=== PATIENT | male | born 1980 | race Caucasian/White ===

== ENCOUNTER 2025-02-26 10:06 | Emergency (ER) | payer BC, SELFPAY ==
--- NOTE | 2025-02-26 10:06 | ECG_ITS ---
APPROVED REPORT Exam: Resting ECG HR:70 bpm ECG Measurements Heart Rate 70 AXES MO 146 P 66 QRSd 111 QRS 67 QT 367 T 68 QTc 388 Conclusion Normal Sinus Rhythm Normal [place] Normal Intervals NO STEMI Electronically signed by : Louie Morris, 02/26/2025 17:28:42
[2025-02-26 10:09] VITALS: BP 126/88; PULSE 81; RESP 20; TEMP 36.9; O2SAT 100; BMI 27.2
--- NOTE | 2025-02-26 10:11 | ED_ITS ---
<Statement entered by Louie Morris DO - 02/27/25 07:14> I was consulted by the [facility], and we discussed the complexity of problems being addressed. I approved the treatment and management plan for this patient's care in the emergency department, thus performing a substantive portion of the medical decision making. I did personally evaluate this patient in the emergency department and obtained history as well. I do agree with history provided by the note above. Patient does note working on a farm and also notes left-sided chest pain and neck pain with numbness and tingling in the left arm. EKG appeared to be nonischemic and his troponin and delta troponin were both undetectably low. His heart score is low and his pain has resolved so I do not feel that he necessitates emergent evaluation by cardiology at this time. It is also very likely that he could have sustained a musculoskeletal injury given his line of work. We did discuss return precautions in the event he has any worsening symptoms and he acknowledged understanding. He remained stable in the emergency department, and symptoms had improved by the time of discharge. He was discharged home in stable condition. Louie Morris DO Discharge Plan Disposition Patient Disposition: Home, Self-Care Prescriptions Prescriptions: New lidocaine [Lidoderm] 5 % adhesive patch,medicated 1 patch topical DAILY 7 Days Qty: 7 0RF Rx Instructions: leave on most painful area for up to 12 hrs lidocaine [Lidoderm] 5 % adhesive patch,medicated 1 patch topical DAILY PRN (Reason: pain) 14 Days Qty: 15 0RF Rx Instructions: leave on most painful area for up to 12 hrs Referrals Follow up/Referrals: [facility] [Primary Care Provider, Medical] - See instructions Activity Restrictions/Add. Instructions Additional Instructions/Restrictions: Today you were evaluated in the emergency department for chest pain. Your cardiac enzymes were negative. Your chest x-ray was unremarkable. Please take the medication as prescribed. Please follow-up with your PCP next week. Please return to the ED for any worsening of your condition. Clinical Impressions Clinical Impression: Chest pain, Neck pain Instructions Patient Instructions: DI for Chest Pain Print Language Print Language: Malagasy Discharge ED Provider: Louie Morris HPI <Maddi Lentz APRN - Last Filed: 02/26/25 17:52> General Chief Complaint: Chest Pain Stated Complaint: Chest Pain Time Seen by Provider: 02/26/25 10:10 History of Present Illness HPI narrative: patient is a 44-year-old male with no significant PMHx who presents to the ED for complaints of left-sided neck pain, left arm pain, nausea, chest tightness that started approximately 0745 this morning. 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 He states although he does not have any cardiac history, his father had WPW, open heart surgery. Patient states he has been evaluated since he was young for cardiac issues, has had multiple negative stress test just due to family history. Related Data Previous Rx's ?Medication ?Instructions ?Recorded lidocaine 5 % topical patch 1 patch topical DAILY 7 da ys #7 ea 02/26/25 (Lidoderm) lidocaine 5 % topical patch 1 patch topical DAILY PRN pain 14 02/26/25 (Lidoderm) days #15 ea Allergies Allergy/AdvReac Type Severity Reaction Status Date / Time No Known Allergies Allergy Verified 02/26/25 10:14 [facility] <Maddi Lentz APRN - Last Filed: 02/26/25 17:52> [facility] Disclaimer: The information contained in this section may have been updated after the patient was seen, as this information can be updated by other users. Social History (Updated 02/26/25 @ 17:52 by Maddi Lentz APRN) Smoking Status: Current every day smoker alcohol intake: never current occupational status: employed Travel in the last 8 weeks?: None Have you lived/traveled outside [place] in past 30 days?: No Contact w/someone who lives/traveled outside US past 30 days?: No Exposure to someone with infectious disease in past 14 days?: No Do you have a fever (greater than 100.4 F or 38 C)?: No Have you tested positive for COVID-19?: No Exposed to someone with COVID-19 in past 14 days?: No Do you have a sore throat?: No Do you have a cough?: No Do you have any weakness?: No Do you have any diarrhea?: No Are you experiencing any unusual bleeding?: No Do you have any muscle aches/pain?: No Do you have any abdominal pain?: No Are you experiencing loss of taste or smell?: No <Maddi Lentz APRN - Last Filed: 02/26/25 17:52> ROS Obtained: Yes Systems reviewed as appropriate & no additional complaints except as documented Physical Exam <Maddi Lentz APRN - Last Filed: 02/26/25 17:52> General General appearance: alert and in no apparent distress Head Head exam: atraumatic Eye Eye exam: Present PERRL and EOMI Neck Neck exam: Present full ROM and tenderness (left sided neck tenderness ) Chest Chest inspection: Present other (Mild left-sided chest wall tenderness) Respiratory Respiratory exam: Present normal lung sounds bilaterally Cardiovascular Cardiovascular exam: Present regular rate Abdominal Exam Abdominal exam: Present soft; Absent tenderness Extremities Exam Extremities exam: Present full ROM Back Exam Back exam: Present full ROM Neurological Exam Neurological exam: Present alert and oriented X3 Skin Skin exam: Present warm and dry HEART Score <Maddi Lentz APRN - Last Filed: 02/26/25 17:52> HEART Score HEART Score assessment performed?: Yes History (anamnesis): Slightly suspicious ECG: Normal Age: <45 years Risk factors: No known risk factors Troponin: </= normal limit HEART Score: 0 <Louie Morris DO - Last Filed: 02/27/25 12:23> HEART Score HEART Score: 0 Critical Care <Maddi Lentz APRN - Last Filed: 02/26/25 17:52> Critical Care Time Critical Care Time: No Medical Decision Making <Maddi Lentz APRN - Last Filed: 02/26/25 17:52> Danny Inquiry Pt receiving controlled substance: No Vital Signs Vital Signs: 02/26/25 10:09 02/26/25 10:13 02/26/25 13:39 Temperature 98.4 F 98.7 F Temperature Source Oral Oral Pulse Rate 81 56 L Pulse Rate [Right Brachial] 81 Respiratory Rate 20 18 Blood Pressure 107/68 L Blood Pressure [Right Arm] 126/88 Blood Pressure Mean [Right Arm] 100 Blood Pressure Source Automatic Cuff Blood Pressure Source [Right Arm] Automatic Cuff Blood Pressure Position Sitting Blood Pressure Position [Right Arm] Sitting 02 Sat by Pulse Oximetry 100 Oxygen Delivery Method Room Air Room Air Lab Data Labs: Lab Results 02/26/25 10:09: WBC 7.4, RBC 5.39, Hgb 16.4, Hct 47.8, MCV 88.7, MCH 30.4, MCHC 34.3, RDW 12.3, Plt Count 217, MPV 11.1 H, Neut % (Auto) 66.1, Lymph % (Auto) 24.8, [place] % (Auto) 6.5, Eos % (Auto) 1.3, Baso % (Auto) 0.8, Neut # (Auto) 4.9, Lymph # (Auto) 1.8, [place] # (Auto) 0.5, Eos # (Auto) 0.1, Baso # (Auto) 0.1, Sodium 139, Potassium 4.8, Chloride 105, Carbon Dioxide 27, Anion Gap 11.8, BUN 24 H, Creatinine 1.10, Estimated Creat Clear 107, Estimated GFR 73, Est GFR ( Amer) 89, Glucose 123 H, Calcium 8.8, Magnesium 2.1, Total Bilirubin 0.8, AST 29, ALT 35, Alkaline Phosphatase 56, Troponin I < 0.01, Total Protein 7.2, Albumin 4.5, Globulin 2.7, Albumin/Globulin Ratio 1.7 02/26/25 12:58: Troponin I < 0.01 02/26/25 10:09 02/26/25 10:09 Response Orders (Tests/Meds): ED MEDICATIONS Discontinued Medications Generic Name Dose Route Start Last Admin Trade Name Freq PRN Reason Stop Dose Admin Acetaminophen 1,000 mg 02/26/25 10:21 02/26/25 10:40 Acetaminophen 500mg Tab PO 02/26/25 10:22 1,000 mg ONCE ONE Administration Lidocaine 1 each 02/26/25 10:21 02/26/25 10:35 Lidocaine 5% Transdermal Patch TD 02/26/25 10:22 1 each ONCE ONE Administration Ondansetron HCl 4 mg 02/26/25 10:25 02/26/25 10:35 Ondansetron 4mg/2ml Vial IV 02/26/25 10:26 4 mg ONCE ONE Administration ORDERS Category Date Time Status CXR --portable [XR chest portable] Stat Exams 02/26/25 10:21 Completed CBC w/Auto Diff [Complete Blood Count Auto Diff] Stat Lab 02/26/25 10:09 Completed CMP [Comprehensive Metabolic Panel] Stat Lab 02/26/25 10:09 Completed Magnesium Stat Lab 02/26/25 10:09 Completed Trop I [Troponin I] Stat Lab 02/26/25 10:09 Completed Troponin I Q3H Lab 02/26/25 12:58 Completed MDM Narrative Medical Decision Narrative: In summary, patient is a 44-year-old male with no significant PMHx who presents to the ED for complaints of left-sided neck pain, left arm pain, nausea, chest tightness that started approximately 0745 this morning. 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 He states although he does not have any cardiac history, his father had WPW, open heart surgery. Patient states he has been evaluated since he was young for cardiac issues, has had multiple negative stress test just due to family history. Patient states that he has had neck pain from his physical labor job before however it feels different this time. He denies tobacco use, vaping, drugs or alcohol. Denies fever, chills, bodyaches, shortness of breath, abdominal pain. Upon initial evaluation patient is alert, oriented and cooperative. He is hemodynamically stable. His physical exam is remarkable for mild chest wall tenderness upon palpation, mild left- sided neck and shoulder tenderness upon palpation. He is hemodynamically stable. His EKG is normal sinus rhythm, heart rate 70, QT 367, no STEMI. Discussed with patient and spouse we will proceed with EKG, labs, chest x-ray. He will be symptomatically managed with Zofran, Lidoderm patch and Tylenol at this time. They are agreeable to plan of care. CBC unremarkable for any leukocytosis, stable H&H. CMP unremarkable for any actionable abnormalities, first troponin< 0.01, second troponin < 0.01. Chest x-ray unremarkable for any acute findings. Upon reassessment, patient states his condition has improved. We discussed this is most likely from a musculoskeletal injury, however would like him to follow- up. I offered him a prescription for muscle relaxers however patient declined. I offered him a work note, patient states he does not need 1. I discussed with patient and his strict return precautions to the ED to which they verbalized understanding. He was hemodynamically stable and ambulatory without difficulty from the ED. <Louie Morris, - Last Filed: 02/27/25 12:23> Vital Signs Vital Signs: 02/26/25 10:09 02/26/25 10:13 02/26/25 13:39 Temperature 98.4 F 98.7 F Temperature Source Oral Oral Pulse Rate 81 56 L Pulse Rate [Right Brachial] 81 Respiratory Rate 20 18 Blood Pressure 107/68 L Blood Pressure [Right Arm] 126/88 Blood Pressure Mean [Right Arm] 100 Blood Pressure Source Automatic Cuff Blood Pressure Source [Right Arm] Automatic Cuff Blood Pressure Position Sitting Blood Pressure Position [Right Arm] Sitting 02 Sat by Pulse Oximetry 100 Oxygen Delivery Method Room Air Room Air Lab Data Labs: Lab Results 02/26/25 10:09: WBC 7.4, RBC 5.39, Hgb 16.4, Hct 47.8, MCV 88.7, MCH 30.4, MCHC 34.3, RDW 12.3, Plt Count 217, MPV 11.1 H, Neut % (Auto) 66.1, Lymph % (Auto) 24.8, [place] % (Auto) 6.5, Eos % (Auto) 1.3, Baso % (Auto) 0.8, Neut # (Auto) 4.9, Lymph # (Auto) 1.8, [place] # (Auto) 0.5, Eos # (Auto) 0.1, Baso # (Auto) 0.1, Sodium 139, Potassium 4.8, Chloride 105, Carbon Dioxide 27, Anion Gap 11.8, BUN 24 H, Creatinine 1.10, Estimated Creat Clear 107, Estimated GFR 73, Est GFR ( Amer) 89, Glucose 123 H, Calcium 8.8, Magnesium 2.1, Total Bilirubin 0.8, AST 29, ALT 35, Alkaline Phosphatase 56, Troponin I < 0.01, Total Protein 7.2, Albumin 4.5, Globulin 2.7, Albumin/Globulin Ratio 1.7 02/26/25 12:58: Troponin I < 0.01 Response Orders (Tests/Meds): ED MEDICATIONS Discontinued Medications Generic Name Dose Route Start Last Admin Trade Name Freq PRN Reason Stop Dose Admin Acetaminophen 1,000 mg 02/26/25 10:21 02/26/25 10:40 Acetaminophen 500mg Tab PO 02/26/25 10:22 1,000 mg ONCE ONE Administration Lidocaine 1 each 02/26/25 10:21 02/26/25 10:35 Lidocaine 5% Transdermal Patch TD 02/26/25 10:22 1 each ONCE ONE Administration Ondansetron HCl 4 mg 02/26/25 10:25 02/26/25 10:35 Ondansetron 4mg/2ml Vial IV 02/26/25 10:26 4 mg ONCE ONE Administration ORDERS Category Date Time Status CXR --portable [XR chest portable] Stat Exams 02/26/25 10:21 Completed CBC w/Auto Diff [Complete Blood Count Auto Diff] Stat Lab 02/26/25 10:09 Completed CMP [Comprehensive Metabolic Panel] Stat Lab 02/26/25 10:09 Completed Magnesium Stat Lab 02/26/25 10:09 Completed Trop I [Troponin I] Stat Lab 02/26/25 10:09 Completed Troponin I Q3H Lab 02/26/25 12:58 Completed
[2025-02-26 10:13] VITALS: PULSE 81
--- NOTE | 2025-02-26 10:21 | XR_ITS ---
FINAL REPORT CLINICAL HISTORY: Nonspecific chest pain COMPARISON: None FINDINGS: The heart size is normal. The mediastinum is normal. There is no focal infiltrate or edema. There are no pleural effusions. There is no pneumothorax. There is no osseous abnormality. IMPRESSION: No acute cardiopulmonary process Reviewed, Interpreted and Dictated by Cayetano Khan MD Transcribed by Ruthann Borges Authenticated and [facility]
[2025-02-26 10:29] LABS: Hematocrit 47.8 % (42.0-52.0); Hemoglobin 16.4 g/dL (14.1-18.0); Immature Granulocytes % 0.5 %; Mean Corpuscular HGB Conc 34.3 g/dL (31.8-35.4); Mean Corpuscular Hemoglobin 30.4 pg (27.0-31.2); Mean Corpuscular Volume 88.7 fl (80-94); Nucleated Red Blood Cells % 0 %; Platelet Count 217 K/mm3 (142-424); Red Blood Count 5.39 M/mm3 (4.60-6.20); Red Cell Distribution Width-SD 40.2 fL; White Blood Count 7.4 K/mm3 (4.8-10.8)
[2025-02-26] MEDS: LIDOCAINE 5% TRANSDERMAL PATCH 1 EACH TD (10:35)
[2025-02-26] MEDS: ONDANSETRON 4MG/2ML VIAL 4 MG IV (10:35)
[2025-02-26 10:38] LABS: Chloride 105 mmol/L (98-107)
[2025-02-26 10:39] LABS: Albumin Level 4.5 g/dl (3.5-5.0); Potassium 4.8 mmoL/L (3.5-5.1); Sodium 139 mmol/L (136-145)
[2025-02-26] MEDS: ACETAMINOPHEN 500MG TAB 1000 MG PO (10:40)
[2025-02-26 10:42] LABS: Alanine Aminotransferase 35 U/L (12-78); Albumin/Globulin Ratio 1.7 (1.1-1.8); Alkaline Phosphatase 56 U/L (38-126); Anion Gap 11.8 mEq/L (5-15); Aspartate Amino Transferase 29 U/L (17-59); Bilirubin,Total 0.8 mg/dl (0.2-1.3); Blood Urea Nitrogen 24 mg/dl (9-20); Calcium 8.8 mg/dl (8.4-10.2); Carbon Dioxide 27 mmol/L (22.0-30.0); Creatinine Clearance Estimated 107 mL/min (50-200); Creatinine,Serum 1.10 mg/dl (0.66-1.25); Estimated Glomerular Filt Rate 73 ml/min (>60); GFR (African American) 89 ML/MIN (>60); Globulin 2.7 g/dL (1.3-3.2); Glucose 123 mg/dl (74-100); Total Protein,Serum 7.2 g/dl (6.3-8.2)
[2025-02-26 10:57] LABS: Troponin I < 0.01 ng/ml (0.00-0.034)
[2025-02-26 11:31] LABS: Magnesium 2.1 mg/dl (1.6-2.3)
[2025-02-26 13:31] LABS: Troponin I < 0.01 ng/ml (0.00-0.034)
[2025-02-26 13:39] VITALS: BP 107/68; PULSE 56; RESP 18; TEMP 37.1; O2SAT 98
== END 2025-02-26 13:43 | disposition home or self-care (01) ==
PROVIDERS: Nurse Practitioner; Emergency Provider Student in an Organized Health Care Education/Training Program; PCP Internal Medicine
DX: R07.9 Chest pain, unspecified (principal); M54.2 Cervicalgia; F17.210 Nicotine dependence, cigarettes, uncomplicated
CPT/HCPCS: 71045; 80053; 83735; 84484; 85025; 93005; 96374; 99284; J2405

== ENCOUNTER 2025-06-06 14:09 | Observation (INO) | payer BC, SELFPAY ==
[2025-06-06] VITALS (18 sets, daily range): BP systolic 99–148; BP diastolic 43–85; PULSE 51–90; RESP 14–18; TEMP 36.7–38; O2SAT 94–99; BMI 27.2
--- NOTE | 2025-06-06 14:20 | XR_ITS ---
FINAL REPORT CLINICAL HISTORY: short of breath COMPARISON: 02/26/2025 FINDINGS: A portable view of the chest was obtained. Cardiac and mediastinal silhouettes are within normal limits. The lungs are clear. There is no pleural effusion or pneumothorax. IMPRESSION: No acute process on this portable exam. Reviewed, Interpreted and Dictated by Zabrina Dickerson MD Transcribed by Brenda Fu Authenticated and [facility]
--- NOTE | 2025-06-06 14:20 | CT_ITS ---
FINAL REPORT TECHNIQUE: Thin section axial images are obtained through the abdomen and pelvis after intravenous contrast. Reconstruction images were obtained from the axial data. Exam was performed using dose reduction techniques. CLINICAL HISTORY: right lower abdomen pain COMPARISON: None FINDINGS: LUNG BASES: Lung bases are clear. Heart size is normal. LIVER: Very small hypodense lesion in the medial segment of the liver is likely a cyst. There is an 8 mm hypervascular lesion in the inferior right lobe of the liver which is nonspecific and favored to represent flash filling hemangioma. GALLBLADDER/BILIARY SYSTEM: Gallbladder is present. No gallstones. No biliary dilatation. SPLEEN: Unremarkable. PANCREAS: Unremarkable. ADRENALS: Unremarkable. KIDNEYS/URETERS/BLADDER: No hydronephrosis, renal mass, or renal stone. Unremarkable urinary bladder. GI TRACT: No small bowel obstruction or dilatation. Appendix is dilated and thick walled. It measures 11 mm in diameter. There is surrounding inflammation. Remaining GI tract without acute abnormality. PELVIC ORGANS: Unremarkable for age. LYMPH NODES/RETROPERITONEUM/MESENTERY: No lymphadenopathy. No abdominal aortic aneurysm. ABDOMINAL WALL: The abdominal wall is intact. FREE FLUID: No ascites. BONES: No acute osseous abnormality. IMPRESSION: Acute appendicitis without evidence of complication. Right liver lesion favored to represent small flash filling hemangioma. Reviewed, Interpreted and Dictated by Zabrina Dickerson MD Transcribed by Ruthann Borges Authenticated and [facility]
--- NOTE | 2025-06-06 14:21 | ED_ITS ---
<Statement entered by Jackie Andrade DO - 06/06/25 17:47> I was consulted by the KOL[facility], and we discussed the complexity of problems being addressed. I approve the treatment and management plan for this patient's care in the emergency department, thus performing a substantial portion of the medical decision making. Jackie Andrade DO Discharge Plan Disposition Patient Disposition: Still a Patient Condition: Good Clinical Impressions Clinical Impression: Appendicitis Discharge ED Provider: Jackie Andrade General Adult HPI <Lorna Alex (ED), ACCOUNTING SUPPORT SPECIALIST - Last Filed: 06/06/25 16:36> General Chief complaint: Abdominal Pain Stated complaint: vomiting, right side stomache pain Time Seen by Provider: 06/06/25 14:11 History of Present Illness HPI narrative: 44-year-old male presents to the ED today for right lower quadrant abdominal pain since last night at 2130. Patient had vomiting last night as well. No diarrhea no fevers. No surgeries in the past. Patient has no real history. Related Data Previous Rx's ?Medication ?Instructions ?Recorded lidocaine 5 % topical patch 1 patch topical DAILY 7 da ys #7 ea 02/26/25 (Lidoderm) lidocaine 5 % topical patch 1 patch topical DAILY PRN pain 14 02/26/25 (Lidoderm) days #15 ea Allergies Allergy/AdvReac Type Severity Reaction Status Date / Time No Known Allergies Allergy Verified 02/26/25 10:14 PFSH <Lorna Alex (ED), ACCOUNTING SUPPORT SPECIALIST - Last Filed: 06/06/25 16:36> PFS Disclaimer: The information contained in this section may have been updated after the patient was seen, as this information can be updated by other users. Social History (Updated 06/06/25 @ 17:42 by Liza Merritt CRNA) Smoking Status: Current every day smoker alcohol intake: never substance use type: unknown current occupational status: employed Travel in the last 8 weeks?: None Have you lived/traveled outside US in past 30 days?: No Contact w/someone who lives/traveled outside US past 30 days?: No Exposure to someone with infectious disease in past 14 days?: No Do you have a fever (greater than 100.4 F or 38 C)?: No Have you tested positive for COVID-19?: No Exposed to someone with COVID-19 in past 14 days?: No Do you have a sore throat?: No Do you have a cough?: No Do you have any weakness?: No Do you have any diarrhea?: No Are you experiencing any unusual bleeding?: No Do you have any muscle aches/pain?: No Do you have any abdominal pain?: Yes Are you experiencing loss of taste or smell?: No <Lorna Alex (ED), ACCOUNTING SUPPORT SPECIALIST - Last Filed: 06/06/25 16:36> ROS Obtained: Yes Systems reviewed as appropriate & no additional complaints except as documented Constitutional Constitutional: Reports as per HPI Physical Exam <Lorna Alex (ED), ACCOUNTING SUPPORT SPECIALIST - Last Filed: 06/06/25 16:36> General General appearance: alert Head Head exam: normocephalic Eye Eye exam: Present PERRL and EOMI ENT ENT exam: Present normal oropharynx and mucous membranes moist Neck Neck exam: Present full ROM and trachea midline Respiratory Respiratory exam: Present normal lung sounds bilaterally Cardiovascular Cardiovascular exam: Present regular rate, normal rhythm, normal heart sounds, +S1 and +S2 Abdominal Exam Abdominal exam: Present soft and normal bowel sounds Abdominal tenderness: Present RLQ and moderate Extremities Exam Extremities exam: Present full ROM and normal capillary refill Neurological Exam Neurological exam: Present alert and oriented X3 Skin Skin exam: Present warm, dry and intact Medical Decision Making <Lorna Alex (ED), ACCOUNTING SUPPORT SPECIALIST - Last Filed: 06/06/25 16:36> Medical Records Screening: Per USPSTF and CDC recommendations, given the prevalence of disease in our region, it is our hospital?s policy to screen for HIV and viral Hepatitis for all patients aged 18 and over and those with ongoing risk factors. Danny Inquiry Pt receiving controlled substance: No Danny was queried for this patient: No Vital Signs: 06/06/25 14:30 06/06/25 14:32 06/06/25 15:00 Temperature 98.9 F Temperature Source Oral Pulse Rate 90 76 Pulse Rate [Right Radial] 84 Respiratory Rate 15 Blood Pressure 116/80 121/76 Blood Pressure [Right Arm] 116/80 Blood Pressure Mean 97 90 Blood Pressure Mean [Right Arm] 92 Blood Pressure Source [Right Arm] Automatic Cuff Blood Pressure Position [Right Arm] Supine 02 Sat by Pulse Oximetry 98 95 98 Oxygen Delivery Method Room Air Lab Data Lab Results 06/06/25 14:27: WBC 12.7 H, RBC 5.16, Hgb 15.9, Hct 45.3, MCV 87.8, MCH 30.8, MCHC 35.1, RDW 12.2, Plt Count 206, MPV 11.3 H, Neut % (Auto) 79.5, Lymph % (Auto) 12.7, [place] % (Auto) 6.8, Eos % (Auto) 0.4, Baso % (Auto) 0.4, Neut # (Auto) 10.1 H, Lymph # (Auto) 1.6, [place] # (Auto) 0.9, Eos # (Auto) 0.1, Baso # (Auto) 0.1, Sodium 134 L, Potassium 3.8, Chloride 103, Carbon Dioxide 23, Anion Gap 11.8, BUN 19, Creatinine 1.00, Estimated Creat Clear 117, Estimated GFR 82, Est GFR ( Amer) 99, Glucose 105 H, Calcium 9.2, Magnesium 2.1, Total Bilirubin 1.9 H, AST 26, ALT 41, Alkaline Phosphatase 54, Total Protein 7.4, Albumin 4.7, Globulin 2.7, Albumin/Globulin Ratio 1.7, Lipase 70, HCV Ab JOSSELIN w/Rflx PCR Qn Negative 06/06/25 14:27 06/06/25 14:27 Orders (Tests/Meds): ED MEDICATIONS Generic Name Dose Route Start Last Admin Trade Name Freq PRN Reason Stop Dose Admin Metronidazole 500 mg in 100 mls @ 100 mls/hr 06/06/25 17:03 Flagyl 500mg/100ml Ivpb IV 06/06/25 18:02 ONCE ONE Discontinued Medications Generic Name Dose Route Start Last Admin Trade Name Freq PRN Reason Stop Dose Admin Hydromorphone HCl 0.5 mg 06/06/25 15:20 06/06/25 15:29 Hydromorphone 2mg/Ml Syringe IV 06/06/25 15:21 0.5 mg ONCE ONE Administration Sodium Chloride 1,000 mls @ 999 mls/hr 06/06/25 14:19 06/06/25 15:46 Sod Chlor 0.9% 1000ml Bag IV 06/06/25 15:19 Infused .Q1H1M ONE Infusion Sodium Chloride 1,000 mls @ 999 mls/hr 06/06/25 16:33 06/06/25 16:49 Sod Chlor 0.9% 1000ml Bag IV 06/06/25 17:33 999 mls/hr .Q1H1M ONE Administration Ceftriaxone Sodium 2 gm/ 100 mls @ 200 mls/hr 06/06/25 17:03 Sodium Chloride IV 06/06/25 17:32 ONCE ONE Iopamidol 75 ml 06/06/25 14:59 06/06/25 15:01 Iopamidol-370 (76%);100ml Bottle IV 06/06/25 15:00 75 ml ONCE ONE Administration Ketorolac Tromethamine 30 mg 06/06/25 14:19 06/06/25 14:46 Ketorolac 30mg/Ml Vial IV 06/06/25 14:20 30 mg ONCE ONE Administration Morphine Sulfate 4 mg 06/06/25 14:19 06/06/25 14:46 Morphine 4mg/Ml Syringe IV 06/06/25 14:20 4 mg ONCE ONE Administration Ondansetron HCl 4 mg 06/06/25 14:19 06/06/25 14:45 Ondansetron 4mg/2ml Vial IV 06/06/25 14:20 4 mg ONCE ONE Administration ORDERS Category Date Time Status CT abdomen pelvis w con Stat Cat Scan 06/06/25 14:20 Completed Chest XR -- portable [XR chest portable] Stat Exams 06/06/25 14:20 Completed CBC [Complete Blood Count Auto Diff] Stat Lab 06/06/25 14:27 Completed Comprehensive Metabolic Panel Stat Lab 06/06/25 14:27 Completed HIV Combo Stat Lab 06/06/25 14:27 Received Hepatitis C Ab Qual. W/ RFX Stat Lab 06/06/25 14:27 Completed Lipase Stat Lab 06/06/25 14:27 Completed Magnesium Stat Lab 06/06/25 14:27 Completed Medical Decision Narrative: patient is a 44-year-old male presenting to the emergency department for evaluation of right lower quadrant abdominal pain. Patient is hemodynamically stable and nontoxic-appearing upon arrival, afebrile. Differential diagnosis includes appendicitis, gastroenteritis, colitis, among others. Workup will be conducted with hematologic labs, specific imaging. Initial inventions include crystalloid bolus, analgesics, antibiotics. Initial workup reviewed by tx hematologic labs are remarkable for elevated white count of 12.7. Other labs are nonactionable. Patient chest x-ray shows no acute findings on chest. Patient's CT scan of his abdomen shows dilated thick- walled appendix that is 11 mm and inflamed. I talked to Dr. Jones at 1630 and he is coming in to do surgery. I talked to the patient and he is agreeable. Patient is stable at this time. <Jackie Andrade, DO - Last Filed: 06/06/25 17:47> Vital Signs: 06/06/25 14:30 06/06/25 14:32 06/06/25 15:00 Temperature 98.9 F Temperature Source Oral Pulse Rate 90 76 Pulse Rate [Right Radial] 84 Respiratory Rate 15 Blood Pressure 116/80 121/76 Blood Pressure [Right Arm] 116/80 Blood Pressure Mean 97 90 Blood Pressure Mean [Right Arm] 92 Blood Pressure Source [Right Arm] Automatic Cuff Blood Pressure Position [Right Arm] Supine 02 Sat by Pulse Oximetry 98 95 98 Oxygen Delivery Method Room Air Lab Data Lab Results 06/06/25 14:27: WBC 12.7 H, RBC 5.16, Hgb 15.9, Hct 45.3, MCV 87.8, MCH 30.8, MCHC 35.1, RDW 12.2, Plt Count 206, MPV 11.3 H, Neut % (Auto) 79.5, Lymph % (Auto) 12.7, [place] % (Auto) 6.8, Eos % (Auto) 0.4, Baso % (Auto) 0.4, Neut # (Auto) 10.1 H, Lymph # (Auto) 1.6, [place] # (Auto) 0.9, Eos # (Auto) 0.1, Baso # (Auto) 0.1, Sodium 134 L, Potassium 3.8, Chloride 103, Carbon Dioxide 23, Anion Gap 11.8, BUN 19, Creatinine 1.00, Estimated Creat Clear 117, Estimated GFR 82, Est GFR ( Amer) 99, Glucose 105 H, Calcium 9.2, Magnesium 2.1, Total Bilirubin 1.9 H, AST 26, ALT 41, Alkaline Phosphatase 54, Total Protein 7.4, Albumin 4.7, Globulin 2.7, Albumin/Globulin Ratio 1.7, Lipase 70, HCV Ab JOSSELIN w/Rflx PCR Qn Negative Orders (Tests/Meds): ED MEDICATIONS Generic Name Dose Route Start Last Admin Trade Name Freq PRN Reason Stop Dose Admin Metronidazole 500 mg in 100 mls @ 100 mls/hr 06/06/25 17:03 Flagyl 500mg/100ml Ivpb IV 06/06/25 18:02 ONCE ONE Discontinued Medications Generic Name Dose Route Start Last Admin Trade Name Jocelin PRN Reason Stop Dose Admin Hydromorphone HCl 0.5 mg 06/06/25 15:20 06/06/25 15:29 Hydromorphone 2mg/Ml Syringe IV 06/06/25 15:21 0.5 mg ONCE ONE Administration Sodium Chloride 1,000 mls @ 999 mls/hr 06/06/25 14:19 06/06/25 15:46 Sod Chlor 0.9% 1000ml Bag IV 06/06/25 15:19 Infused .Q1H1M ONE Infusion Sodium Chloride 1,000 mls @ 999 mls/hr 06/06/25 16:33 06/06/25 16:49 Sod Chlor 0.9% 1000ml Bag IV 06/06/25 17:33 999 mls/hr .Q1H1M ONE Administration Ceftriaxone Sodium 2 gm/ 100 mls @ 200 mls/hr 06/06/25 17:03 Sodium Chloride IV 06/06/25 17:32 ONCE ONE Iopamidol 75 ml 06/06/25 14:59 06/06/25 15:01 Iopamidol-370 (76%);100ml Bottle IV 06/06/25 15:00 75 ml ONCE ONE Administration Ketorolac Tromethamine 30 mg 06/06/25 14:19 06/06/25 14:46 Ketorolac 30mg/Ml Vial IV 06/06/25 14:20 30 mg ONCE ONE Administration Morphine Sulfate 4 mg 06/06/25 14:19 06/06/25 14:46 Morphine 4mg/Ml Syringe IV 06/06/25 14:20 4 mg ONCE ONE Administration Ondansetron HCl 4 mg 06/06/25 14:19 06/06/25 14:45 Ondansetron 4mg/2ml Vial IV 06/06/25 14:20 4 mg ONCE ONE Administration ORDERS Category Date Time Status CT abdomen pelvis w con Stat Cat Scan 06/06/25 14:20 Completed Chest XR -- portable [XR chest portable] Stat Exams 06/06/25 14:20 Completed CBC [Complete Blood Count Auto Diff] Stat Lab 06/06/25 14:27 Completed Comprehensive Metabolic Panel Stat Lab 06/06/25 14:27 Completed HIV Combo Stat Lab 06/06/25 14:27 Received Hepatitis C Ab Qual. W/ RFX Stat Lab 06/06/25 14:27 Completed Lipase Stat Lab 06/06/25 14:27 Completed Magnesium Stat Lab 06/06/25 14:27 Completed Critical Care <Jackie Andrade, DO - Last Filed: 06/06/25 17:47> Critical Care Time Critical Care Time: No
--- NOTE | 2025-06-06 14:37 | ECG_ITS ---
APPROVED REPORT Exam: Resting ECG HR:75 bpm ECG Measurements Heart Rate 75 AXES PA 145 P 76 QRSd 110 QRS 73 QT 358 T 66 QTc 387 Conclusion SINUS RHYTHM WITH MARKED SINUS ARRHYTHMIA BORDERLINE ECG Electronically signed by : SCOTT GAVIN, 06/07/2025 14:03:25
[2025-06-06 14:38] LABS: Hematocrit 45.3 % (42.0-52.0); Hemoglobin 15.9 g/dL (14.1-18.0); Immature Granulocytes % 0.2 %; Mean Corpuscular HGB Conc 35.1 g/dL (31.8-35.4); Mean Corpuscular Hemoglobin 30.8 pg (27.0-31.2); Mean Corpuscular Volume 87.8 fl (80-94); Nucleated Red Blood Cells % 0 %; Platelet Count 206 K/mm3 (142-424); Red Blood Count 5.16 M/mm3 (4.60-6.20); Red Cell Distribution Width-SD 39.3 fL; White Blood Count 12.7 K/mm3 (4.8-10.8)
[2025-06-06] MEDS: 0.9 % SODIUM CHLORIDE 1000ML 1,000 ML 999 ML IV ×2 (14:44→16:49)
[2025-06-06 14:45] LABS: Alanine Aminotransferase 41 U/L (12-78); Albumin Level 4.7 g/dl (3.5-5.0); Albumin/Globulin Ratio 1.7 (1.1-1.8); Alkaline Phosphatase 54 U/L (38-126); Anion Gap 11.8 mEq/L (5-15); Aspartate Amino Transferase 26 U/L (17-59); Bilirubin,Total 1.9 mg/dl (0.2-1.3); Blood Urea Nitrogen 19 mg/dl (9-20); Calcium 9.2 mg/dl (8.4-10.2); Carbon Dioxide 23 mmol/L (22.0-30.0); Chloride 103 mmol/L (98-107); Creatinine Clearance Estimated 117 mL/min (50-200); Creatinine,Serum 1.00 mg/dl (0.66-1.25); Estimated Glomerular Filt Rate 82 ml/min (>60); GFR (African American) 99 ML/MIN (>60); Globulin 2.7 g/dL (1.3-3.2); Glucose 105 mg/dl (74-100); Lipase 70 U/L (23-300); Magnesium 2.1 mg/dl (1.6-2.3); Potassium 3.8 mmoL/L (3.5-5.1); Sodium 134 mmol/L (136-145); Total Protein,Serum 7.4 g/dl (6.3-8.2)
[2025-06-06] MEDS: ONDANSETRON 4MG/2ML VIAL 4 MG IV (14:45)
[2025-06-06] MEDS: MORPHINE 4MG/ML SYRINGE 4 MG IV (14:46)
[2025-06-06] MEDS: KETOROLAC 30MG/ML VIAL 30 MG IV (14:46)
[2025-06-06] MEDS: IOPAMIDOL-370 (76%);100ML BOTTLE 75 ML IV (15:01)
[2025-06-06] MEDS: HYDROMORPHONE 2MG/ML SYRINGE 0.5 MG IV (15:29)
--- NOTE | 2025-06-06 16:34 | PC.NURSE ---
on call surgery team paged per Dr. Antonio request. ED notified.
[2025-06-06 16:45] LABS: Hepatitis C Ab Qual. W/ RFX NEGATIVE (Negative)
--- NOTE | 2025-06-06 17:07 | PC.NURSE ---
dr de la vega at bedside
--- NOTE | 2025-06-06 17:11 | EXP.GEN.HP ---
HPI HPI HPI: This is a 44-year-old gentleman who presented to the emergency department with increasing right lower quadrant abdominal pain. Radiographic evidence consistent with appendicitis noted. The surgical service was consulted for evaluation/management. Forwarded from emergency department evaluation: General Chief complaint: Abdominal Pain Stated complaint: vomiting, right side stomache pain Time Seen by Provider: 06/06/25 14:11 History of Present Illness HPI narrative: 44-year-old male presents to the ED today for right lower quadrant abdominal pain since last night at 2130. Patient had vomiting last night as well. No diarrhea no fevers. No surgeries in the past. Patient has no real history. --- Medical Decision Narrative: patient is a 44-year-old male presenting to the emergency department for evaluation of right lower quadrant abdominal pain. Patient is hemodynamically stable and nontoxic-appearing upon arrival, afebrile. Differential diagnosis includes appendicitis, gastroenteritis, colitis, among others. Workup will be conducted with hematologic labs, specific imaging. Initial inventions include crystalloid bolus, analgesics, antibiotics. Initial workup reviewed by me hematologic labs are remarkable for elevated white count of 12.7. Other labs are nonactionable. Patient chest x-ray shows no acute findings on chest. Patient's CT scan of his abdomen shows dilated thick-walled appendix that is 11 mm and inflamed. I talked to Dr. Jones at 1630 and he is coming in to do surgery. I talked to the patient and he is agreeable. Patient is stable at this time. [facility] Disclaimer: The information contained in this section may have been updated after the patient was seen, as this information can be updated by other users. Social History (Updated 02/26/25 @ 17:52 by Maddi Lentz APRN) Smoking Status: Current every day smoker alcohol intake: never current occupational status: employed Travel in the last 8 weeks?: None Have you lived/traveled outside US in past 30 days?: No Contact w/someone who lives/traveled outside US past 30 days?: No Exposure to someone with infectious disease in past 14 days?: No Do you have a fever (greater than 100.4 F or 38 C)?: No Have you tested positive for COVID-19?: No Exposed to someone with COVID-19 in past 14 days?: No Do you have a sore throat?: No Do you have a cough?: No Do you have any weakness?: No Do you have any diarrhea?: No Are you experiencing any unusual bleeding?: No Do you have any muscle aches/pain?: No Do you have any abdominal pain?: Yes Are you experiencing loss of taste or smell?: No Review of Systems Review of Systems Review of systems:: pertinent systems reviewed and negative unless documented below *Gastrointestinal Gastrointestinal: Reports as per [facility] Meds Home Medications and Allergies Home Medications ?Medication ?Instructions ?Recorded ?Confirmed ?Type lidocaine 5 % topical patch 1 patch topical DAILY 7 days #7 ea 02/26/25 Rx (Lidoderm) lidocaine 5 % topical patch 1 patch topical DAILY PRN pain 14 02/26/25 Rx (Lidoderm) days #15 ea New Prescriptions to Start Prescriptions: Allergies Allergy/AdvReac Type Severity Reaction Status Date / Time No Known Allergies Allergy Verified 02/26/25 10:14 Exam Data for Last 24 hours Vital signs and Labs for Last 24 Hours: Temp Pulse Resp BP Pulse Ox O2 Del Method 98.9 F 76 15 121/76 98 Room Air 06/06/25 14:32 06/06/25 15:00 06/06/25 14:32 06/06/25 15:00 06/06/25 15:00 06/06/25 14:32 Laboratory Results - last 24 hr 06/06/25 14:27: WBC 12.7 H, RBC 5.16, Hgb 15.9, Hct 45.3, MCV 87.8, MCH 30.8, MCHC 35.1, RDW 12.2, Plt Count 206, MPV 11.3 H, Neut % (Auto) 79.5, Lymph % (Auto) 12.7, [place] % (Auto) 6.8, Eos % (Auto) 0.4, Baso % (Auto) 0.4, Neut # (Auto) 10.1 H, Lymph # (Auto) 1.6, [place] # (Auto) 0.9, Eos # (Auto) 0.1, Baso # (Auto) 0.1, Sodium 134 L, Potassium 3.8, Chloride 103, Carbon Dioxide 23, Anion Gap 11.8, BUN 19, Creatinine 1.00, Estimated Creat Clear 117, Estimated GFR 82, Est GFR ( Amer) 99, Glucose 105 H, Calcium 9.2, Magnesium 2.1, Total Bilirubin 1.9 H, AST 26, ALT 41, Alkaline Phosphatase 54, Total Protein 7.4, Albumin 4.7, Globulin 2.7, Albumin/Globulin Ratio 1.7, Lipase 70, HCV Ab JOSSELIN w/Rflx PCR Qn Negative I & O for Last 24 hours: Intake & Output 06/04/25 06/05/25 06/06/25 06/07/25 11:59 11:59 11:59 11:59 Intake Total 1000 / 1000 Balance 1000 / 1000 Weight 190 lb Constitutional Constitutional: no acute distress *Routine HEENT Exam Head: Present normocephalic Eye: Present EOMI ENT: Present mucous membranes moist *Routine Neck Exam Neck: Present full ROM *Routine Respiratory Exam Respiratory: Absent respiratory distress *Routine Cardiovascular Exam Cardiovascular: Absent tachycardia *Routine Abdominal Exam Abdominal: Present soft and tenderness *Routine Rectal Exam Rectal:: deferred *Routine Genitalia Exam Genitalia:: deferred *Routine Extremities Exam Extremities: Present full ROM *Routine Skin Exam Skin: Absent erythema *Routine Neurological Exam Neurological: Present alert Results Results Lab Results Last 24 Hours:: Laboratory Results - last 24 hr 06/06/25 14:27: WBC 12.7 H, RBC 5.16, Hgb 15.9, Hct 45.3, MCV 87.8, MCH 30.8, MCHC 35.1, RDW 12.2, Plt Count 206, MPV 11.3 H, Neut % (Auto) 79.5, Lymph % (Auto) 12.7, [place] % (Auto) 6.8, Eos % (Auto) 0.4, Baso % (Auto) 0.4, Neut # (Auto) 10.1 H, Lymph # (Auto) 1.6, [place] # (Auto) 0.9, Eos # (Auto) 0.1, Baso # (Auto) 0.1, Sodium 134 L, Potassium 3.8, Chloride 103, Carbon Dioxide 23, Anion Gap 11.8, BUN 19, Creatinine 1.00, Estimated Creat Clear 117, Estimated GFR 82, Est GFR ( Amer) 99, Glucose 105 H, Calcium 9.2, Magnesium 2.1, Total Bilirubin 1.9 H, AST 26, ALT 41, Alkaline Phosphatase 54, Total Protein 7.4, Albumin 4.7, Globulin 2.7, Albumin/Globulin Ratio 1.7, Lipase 70, HCV Ab JOSSELIN w/Rflx PCR Qn Negative CT scan - abdomen: report reviewed and image reviewed CT scan - pelvis: report reviewed and image reviewed Assessment and Plan *Assessment and plan (1) Appendicitis: Status: Acute Qualifiers: Appendicitis type: acute appendicitis Acute appendicitis type: with localized peritonitis Appendicitis gangrene presence: without gangrene Appendicitis perforation presence: without perforation Appendicitis abscess presence: without abscess Qualified Code(s): K35.30 - Acute appendicitis with localized peritonitis, without perforation or gangrene Category: Medical Code(s): K37 - Unspecified appendicitis Plan: Laparoscopic appendectomy I have discussed the risks and benefits including, but not limited to: Bleeding Infection Damage to surrounding tissue Inherent risks of sedation The patient agrees to proceed.
[2025-06-06] MEDS: METRONIDAZ/SOD CHL 500 MG/100 ML PIGGYBACK 100 MG IV (17:20)
--- NOTE | 2025-06-06 17:41 | EXP.ANES.CKL ---
[facility] Disclaimer: The information contained in this section may have been updated after the patient was seen, as this information can be updated by other users. Social History Smoking Status: Current every day smoker alcohol intake: never substance use type: unknown current occupational status: employed Travel in the last 8 weeks?: None [facility] Anesthesia Checklist Patient Identification Patient Identification: Arm Band and Verbal (Name & ) Structural Data Admitted From: Emergency Dept Planned Operative Procedure/s: lap appy Consent for Planned Operative Procedure(s) Verified: Yes Verified Documents: Surgical Consent and History and Physical NPO Status Verified Time NPO: 12:00 Additional verifications Anesthesia Reactions: No Airway Assessment Mallampati Score:: Class II Dentition: Good Dentition Neurological Assessment Level of Consciousness: Awake, Alert and Appropriate Hx Seizures: No Numbness or tingling in extremities: No Anesthesia Plan Anesthesia Risk discussed: Yes Anesthesia Plan: Verified ASA Class: II Anesthesia Type: General
[2025-06-06] MEDS: LIDOCAINE 1% 20ML MDV 20 ML (17:51)
[2025-06-06 17:59] LABS: Microscopic,Cath URINE MICROSCOPIC (MICROSCOPIC)
[2025-06-06 18:24] LABS: Appearance,Urine/Cath CLEAR (Clear); Bilirubin,Cath Negative (Negative); Blood, Urine/Cath Negative (Negative); Color,Urine/Cath YELLOW (Yellow); Glucose,Urine/Cath (UA) Negative (Negative); Ketones,Urine/Cath Negative (Negative); Leukocyte Esterase,Cath Negative (Negative); Nitrate,Cath Negative (Negative); PH,Urine/Cath 6.0 (5.0-8.5); Protein,Urine/Cath Negative (Negative); Specific Gravity, Urine/Cath 1.020 (1.005-1.030); Urobilinogen,Cath 1.0 EU/dl (0.2)
--- NOTE | 2025-06-06 18:34 | P.OP_ITS ---
Date of procedure: 06/06/25 Pre-op Diagnosis:: Appendicitis Post-op Diagnosis:: Suppurative appendicitis Procedure performed:: Laparoscopic appendectomy Surgeon:: Guero Noel MD PRECISION DYER:: Liza Merritt Anesthesia: GETA Estimated blood loss (mL): 15 Operative findings:: Enlarged/inflamed appendix with overlying suppurative changes Severe inflammatory changes along the right lateral sidewall, terminal ileum, cecum, and mesoappendix Operative note:: After informed consent was obtained the patient was taken to the operating room and placed in the supine position. General anesthesia was induced and his abdomen was prepped and draped in a sterile fashion. After infiltration with local anesthetic an infraumbilical incision was made. A Veress needle was placed in position. The abdomen was insufflated. A 12 mm optical trocar was placed in position. Under direct visualization an additional 5 mm trocar was placed in the suprapubic position and an additional 5 mm trocar was placed in the left lower quadrant. The appendix was carefully elevated. Severe inflammatory changes were noted along the right lateral sidewall, terminal ileum, cecum, and mesoappendix. Overlying suppurative changes were also noted. A combination of blunt dissection and dissection with harmonic theresa was utilized to transect through the mesoappendix and surrounding inflammatory tissue. No obvious injury to the colon or small bowel was noted. Dissection continued to the base of the appendix. An Endopath 45 stapling device was utilized to transect the appendix at its base. The appendix was then placed in a retrieval bag and removed through the infraumbilical trocar site. The right lower quadrant was thoroughly irrigated. No sign of injury or active bleeding was noted. Pneumoperitoneum was released as the trocars were removed. Fascia at the infraumbilical trocar site was reapproximated with interrupted 0 Ethibond. All wounds were irrigated and skin was closed with interrupted 4-0 Monocryl in a subcuticular fashion. Steri-Strips were applied and the patient's anesthetic agents were reversed. He was extubated prior to transfer to recovery. Condition: stable Disposition: PACU Specimens:: Appendix Complications:: No immediate
[2025-06-06 18:37] LABS: WBC,Urine/Cath Occasional #/hpf (0-3)
--- NOTE | 2025-06-06 18:43 | P.PNANES_ITS ---
[facility] Anesthesia Record Part I Anesthesia Record I Intake, IV Amount: 1,000 Hydration: Adequate Estimated blood loss (mL): 5 Urine output (mL): 200 Blood Pressure: 145/45 SaO2: 99 Pulse Rate: 88 Airway Patency: Patent Respiratory Rate: 18 Temperature: 98.6 F Patient is:: Awake and Stable Stable to PACU at:: 18:51
--- NOTE | 2025-06-06 19:19 | PC.NURSE ---
Patient arrived to floor via stretcher from OR at 19:07.
[2025-06-06] MEDS: 0.9 % SODIUM CHLORIDE 1000ML 1,000 ML 125 ML IV (19:50)
[2025-06-06] MEDS: PIPERACILLIN/TAZO 4.5 GM in 0.9 % SODIUM CHLORIDE 100 ML IV (19:50)
[2025-06-07] VITALS: BP 95/54; PULSE 52; RESP 16; TEMP 36.8; O2SAT 98
[2025-06-07] MEDS: PIPERACILLIN/TAZO 4.5 GM in 0.9 % SODIUM CHLORIDE 100 ML IV ×2 (00:05→06:23)
[2025-06-07 04:00] VITALS: BP 109/44; PULSE 56; RESP 16; TEMP 36.6; O2SAT 98; BMI 27.1
[2025-06-07] MEDS: 0.9 % SODIUM CHLORIDE 1000ML 1,000 ML 125 ML IV (04:10)
[2025-06-07 05:34] LABS: Hematocrit 39.0 % (42.0-52.0); Immature Granulocytes % 0.4 %; Mean Corpuscular HGB Conc 33.6 g/dL (31.8-35.4); Mean Corpuscular Hemoglobin 30.3 pg (27.0-31.2); Mean Corpuscular Volume 90.1 fl (80-94); Nucleated Red Blood Cells % 0 %; Platelet Count 171 K/mm3 (142-424); Red Blood Count 4.33 M/mm3 (4.60-6.20); Red Cell Distribution Width-SD 39.8 fL; White Blood Count 10.3 K/mm3 (4.8-10.8)
[2025-06-07 05:36] LABS: Chloride 105 mmol/L (98-107); Sodium 138 mmol/L (136-145)
[2025-06-07 05:37] LABS: Potassium 4.1 mmoL/L (3.5-5.1)
[2025-06-07 05:39] LABS: Blood Urea Nitrogen 14 mg/dl (9-20); Creatinine Clearance Estimated 117 mL/min (50-200); Creatinine,Serum 1.00 mg/dl (0.66-1.25); Estimated Glomerular Filt Rate 82 ml/min (>60); GFR (African American) 99 ML/MIN (>60)
[2025-06-07 05:40] LABS: Anion Gap 15.1 mEq/L (5-15); Calcium 7.8 mg/dl (8.4-10.2); Carbon Dioxide 22 mmol/L (22.0-30.0); Glucose 172 mg/dl (74-100)
[2025-06-07 05:42] LABS: Hemoglobin 13.3 g/dL (14.1-18.0)
--- NOTE | 2025-06-07 05:45 | PC.NURSE ---
Pt is A&OX4 and has tolerated room air. Dressings over lap sites have remained c/d/i. He has denied any pain this shift. He has received IV abx. NS infusing at 125ml/hr. Walked room independently. Family member has remained at bedside. No complaints at this time, call light within reach.
[2025-06-07] MEDS: HYDROCODONE/APAP 5/325 MG TABLET 1 TAB PO (06:26)
--- NOTE | 2025-06-07 07:23 | EXP.SURG.PN ---
Subjective Patient reports: no new complaints and feels better Exam Data for Last 24 hours Vital signs and Labs for Last 24 Hours: Temp Pulse Resp BP Pulse Ox O2 Del Method 97.8 F 56 L 16 109/44 L 98 Room Air 06/07/25 04:00 06/07/25 04:00 06/07/25 04:00 06/07/25 04:00 06/07/25 04:00 06/07/25 06:30 Laboratory Results - last 24 hr 06/06/25 14:27: WBC 12.7 H, RBC 5.16, Hgb 15.9, Hct 45.3, MCV 87.8, MCH 30.8, MCHC 35.1, RDW 12.2, Plt Count 206, MPV 11.3 H, Neut % (Auto) 79.5, Lymph % (Auto) 12.7, [place] % (Auto) 6.8, Eos % (Auto) 0.4, Baso % (Auto) 0.4, Neut # (Auto) 10.1 H, Lymph # (Auto) 1.6, [place] # (Auto) 0.9, Eos # (Auto) 0.1, Baso # (Auto) 0.1, Sodium 134 L, Potassium 3.8, Chloride 103, Carbon Dioxide 23, Anion Gap 11.8, BUN 19, Creatinine 1.00, Estimated Creat Clear 117, Estimated GFR 82, Est GFR ( Amer) 99, Glucose 105 H, Calcium 9.2, Magnesium 2.1, Total Bilirubin 1.9 H, AST 26, ALT 41, Alkaline Phosphatase 54, Total Protein 7.4, Albumin 4.7, Globulin 2.7, Albumin/Globulin Ratio 1.7, Lipase 70, HCV Ab JOSSELIN w/Rflx PCR Qn Negative, HIV Ag/Ab Combo Qual Negative 06/06/25 17:45: Urine Color Yellow, Urine Appearance Clear, Urine pH 6.0, Ur Specific [place] 1.020, Urine Protein Negative, Urine Glucose (UA) Negative, Urine Ketones Negative, Urine Blood Negative, Urine Nitrate Negative, Urine Bilirubin Negative, Urine Urobilinogen 1.0, Ur Leukocyte Esterase Negative, Urine RBC None, Urine WBC Occasional, Ur Squamous Epith Cells None, Urine Bacteria None 06/07/25 05:10: WBC 10.3, RBC 4.33 L, Hgb 13.3 L D, Hct 39.0 L, MCV 90.1, MCH 30.3, MCHC 33.6, RDW 12.1, Plt Count 171, MPV 11.9 H, Neut % (Auto) 86.6 H, Lymph % (Auto) 8.5 L, [place] % (Auto) 4.3, Eos % (Auto) 0.1, Baso % (Auto) 0.1, Neut # (Auto) 8.9 H, Lymph # (Auto) 0.9, [place] # (Auto) 0.4, Eos # (Auto) 0.0, Baso # (Auto) 0.0, Sodium 138, Potassium 4.1, Chloride 105, Carbon Dioxide 22, Anion Gap 15.1 H, BUN 14 D, Creatinine 1.00, Estimated Creat Clear 117, Estimated GFR 82, Est GFR ( Amer) 99, Glucose 172 H D, Calcium 7.8 L I & O for Last 24 hours: Intake & Output 06/04/25 06/05/25 06/06/25 06/07/25 11:59 11:59 11:59 11:59 Intake Total 4700 / 4700 Output Total 0 / 0 Balance 4700 / 4700 Weight 190 lb Constitutional Constitutional: no acute distress *Routine Respiratory Exam Respiratory: Absent respiratory distress *Routine Cardiovascular Exam Cardiovascular: Absent tachycardia *Routine Abdominal Exam Abdominal: Present soft and tenderness (Appropriate post-operative tenderness) Comments: Dressings in place. No cellulitis. Progress Note: A&P Assessment and plan (1) Acute suppurative appendicitis: Status: Acute Assessment and plan: Overall, doing well postoperative day 1 status post laparoscopic appendectomy Discharge home Complete short course of antibiotics secondary to suppurative nature of appendicitis Close outpatient follow-up
[2025-06-07 08:00] VITALS: BP 101/64; PULSE 60; RESP 16; TEMP 36.8; O2SAT 97
--- NOTE | 2025-06-07 08:45 | EXP.DC.SUM ---
General Admission date:: 06/06/25 Discharge date: 06/07/25 HPI HPI HPI: This is a 44-year-old gentleman who presented to the emergency department with increasing right lower quadrant abdominal pain. Radiographic evidence consistent with appendicitis noted. The surgical service was consulted for evaluation/management. Forwarded from emergency department evaluation: General Chief complaint: Abdominal Pain Stated complaint: vomiting, right side stomache pain Time Seen by Provider: 06/06/25 14:11 History of Present Illness HPI narrative: 44-year-old male presents to the ED today for right lower quadrant abdominal pain since last night at 2130. Patient had vomiting last night as well. No diarrhea no fevers. No surgeries in the past. Patient has no real history. --- Medical Decision Narrative: patient is a 44-year-old male presenting to the emergency department for evaluation of right lower quadrant abdominal pain. Patient is hemodynamically stable and nontoxic-appearing upon arrival, afebrile. Differential diagnosis includes appendicitis, gastroenteritis, colitis, among others. Workup will be conducted with hematologic labs, specific imaging. Initial inventions include crystalloid bolus, analgesics, antibiotics. Initial workup reviewed by me hematologic labs are remarkable for elevated white count of 12.7. Other labs are nonactionable. Patient chest x-ray shows no acute findings on chest. Patient's CT scan of his abdomen shows dilated thick-walled appendix that is 11 mm and inflamed. I talked to Dr. Jones at 1630 and he is coming in to do surgery. I talked to the patient and he is agreeable. Patient is stable at this time. Hospital Course Hospital Course Hospital Course: The patient underwent laparoscopic appendectomy. Please see operative report for detail. On the morning of postoperative day 1 he was deemed appropriate for discharge with close outpatient follow-up. Condition at discharge: At the time of discharge the patient was afebrile with stable and normal vital signs. He was ambulating without difficulty and tolerating advancement of his diet. He was discharged with a prescription for a short-course of Augmentin secondary to the suppurative nature of his appendicitis. Exam Data for Last 24 hours Vital signs and Labs for Last 24 Hours: Temp Pulse Resp BP Pulse Ox O2 Del Method 98.2 F 60 16 101/64 L 97 Room Air 06/07/25 08:00 06/07/25 08:00 06/07/25 08:00 06/07/25 08:00 06/07/25 08:00 06/07/25 08:00 Laboratory Results - last 24 hr 06/06/25 14:27: WBC 12.7 H, RBC 5.16, Hgb 15.9, Hct 45.3, MCV 87.8, MCH 30.8, MCHC 35.1, RDW 12.2, Plt Count 206, MPV 11.3 H, Neut % (Auto) 79.5, Lymph % (Auto) 12.7, [place] % (Auto) 6.8, Eos % (Auto) 0.4, Baso % (Auto) 0.4, Neut # (Auto) 10.1 H, Lymph # (Auto) 1.6, [place] # (Auto) 0.9, Eos # (Auto) 0.1, Baso # (Auto) 0.1, Sodium 134 L, Potassium 3.8, Chloride 103, Carbon Dioxide 23, Anion Gap 11.8, BUN 19, Creatinine 1.00, Estimated Creat Clear 117, Estimated GFR 82, Est GFR ( Amer) 99, Glucose 105 H, Calcium 9.2, Magnesium 2.1, Total Bilirubin 1.9 H, AST 26, ALT 41, Alkaline Phosphatase 54, Total Protein 7.4, Albumin 4.7, Globulin 2.7, Albumin/Globulin Ratio 1.7, Lipase 70, HCV Ab JOSSELIN w/Rflx PCR Qn Negative, HIV Ag/Ab Combo Qual Negative 06/06/25 17:45: Urine Color Yellow, Urine Appearance Clear, Urine pH 6.0, Ur Specific [place] 1.020, Urine Protein Negative, Urine Glucose (UA) Negative, Urine Ketones Negative, Urine Blood Negative, Urine Nitrate Negative, Urine Bilirubin Negative, Urine Urobilinogen 1.0, Ur Leukocyte Esterase Negative, Urine RBC None, Urine WBC Occasional, Ur Squamous Epith Cells None, Urine Bacteria None 11/27/25 05:10: WBC 10.3, RBC 4.33 L, Hgb 13.3 L D, Hct 39.0 L, MCV 90.1, MCH 30.3, MCHC 33.6, RDW 12.1, Plt Count 171, MPV 11.9 H, Neut % (Auto) 86.6 H, Lymph % (Auto) 8.5 L, [place] % (Auto) 4.3, Eos % (Auto) 0.1, Baso % (Auto) 0.1, Neut # (Auto) 8.9 H, Lymph # (Auto) 0.9, [place] # (Auto) 0.4, Eos # (Auto) 0.0, Baso # (Auto) 0.0, Sodium 138, Potassium 4.1, Chloride 105, Carbon Dioxide 22, Anion Gap 15.1 H, BUN 14 D, Creatinine 1.00, Estimated Creat Clear 117, Estimated GFR 82, Est GFR ( Amer) 99, Glucose 172 H D, Calcium 7.8 L I & O for Last 24 hours: Intake & Output 06/04/25 06/05/25 06/06/25 06/07/25 11:59 11:59 11:59 11:59 Intake Total 4700 / 4700 Output Total 0 / 0 Balance 4700 / 4700 Weight 190 lb Constitutional Constitutional: no acute distress *Routine HEENT Exam Head: Present normocephalic Eye: Present EOMI ENT: Present mucous membranes moist *Routine Neck Exam Neck: Present full ROM Routine Chest/Breast/Axilla Exam Chest wall: Absent tenderness *Routine Respiratory Exam Respiratory: Absent respiratory distress *Routine Cardiovascular Exam Cardiovascular: Absent tachycardia *Routine Abdominal Exam Abdominal: Present soft *Routine Rectal Exam Patient deferred: visual exam *Routine Exam Patient deferred: penile exam *Routine Extremities Exam Extremities: Present full ROM Routine Back/Spine/Pelvis Exam Back/Spine: Present full ROM *Routine Skin Exam Skin: Absent erythema *Routine Neurological Exam Neurological: Present alert Routine Psychiatric Exam Psychiatric: Present normal affect Results Data Completed and Pending Labs on day of discharge: Labs from last 24 hours 06/07/25 06/06/25 06/06/25 05:10 17:45 14:27 WBC 10.3 12.7 H RBC 4.33 L 5.16 Hgb 13.3 L D 15.9 Hct 39.0 L 45.3 MCV 90.1 87.8 MCH 30.3 30.8 MCHC 33.6 35.1 RDW 12.1 12.2 Plt Count 171 206 MPV 11.9 H 11.3 H Neut % (Auto) 86.6 H 79.5 Lymph % (Auto) 8.5 L 12.7 [place] % (Auto) 4.3 6.8 Eos % (Auto) 0.1 0.4 Baso % (Auto) 0.1 0.4 Neut # (Auto) 8.9 H 10.1 H Lymph # (Auto) 0.9 1.6 [place] # (Auto) 0.4 0.9 Eos # (Auto) 0.0 0.1 Baso # (Auto) 0.0 0.1 Sodium 138 134 L Potassium 4.1 3.8 Chloride 105 103 Carbon Dioxide 22 23 Anion Gap 15.1 H 11.8 BUN 14 D 19 Creatinine 1.00 1.00 Estimated Creat Clear 117 117 Estimated GFR 82 82 Est GFR ( Amer) 99 99 Glucose 172 H D 105 H Calcium 7.8 L 9.2 Magnesium 2.1 Total Bilirubin 1.9 H AST 26 ALT 41 Alkaline Phosphatase 54 Total Protein 7.4 Albumin 4.7 Globulin 2.7 Albumin/Globulin Ratio 1.7 Lipase 70 Urine Color Yellow Urine Appearance Clear Urine pH 6.0 Ur Specific [place] 1.020 Urine Protein Negative Urine Glucose (UA) Negative Urine Ketones Negative Urine Blood Negative Urine Nitrate Negative Urine Bilirubin Negative Urine Urobilinogen 1.0 Ur Leukocyte Esterase Negative Urine RBC None Urine WBC Occasional Ur Squamous Epith Cells None Urine Bacteria None HCV Ab JOSSELIN w/Rflx PCR Qn Negative HIV Ag/Ab Combo Qual Negative DS: Diagnosis Discharge Diagnosis (1) Acute suppurative appendicitis: Status: Acute Code(s): K35.80 - Unspecified acute appendicitis Meds Home Medications and Allergies Home Medications ?Medication ?Instructions ?Recorded ?Confirmed ?Type risankizumab-rzaa 150 mg/mL 180 mg SQ DIRECTED 06/06/25 06/06/25 History subcutaneous pen injector (Skyrizi) amoxicillin 500 mg-potassium 1 tab PO TID #15 tabs 06/07/25 Rx clavulanate 125 mg tablet (Augmentin) hydrocodone 5 mg-acetaminophen 325 1 tab PO Q6H PRN post-op pain #9 11/27/25 Rx mg tablet tabs New Prescriptions to Start Prescriptions: amoxicillin-pot clavulanate [Augmentin] Guero Noel hydrocodone-acetaminophen Guero Noel Allergies Allergy/AdvReac Type Severity Reaction Status Date / Time No Known Allergies Allergy Verified 02/26/25 10:14 Discharge Plan Disposition Patient Disposition: Home, Self-Care Condition: Good Discharge Order Discharge Orders: Discharge Order (Routine); Ordered 06/07/25 Ordered By: Guero Noel Follow up Plan Follow up with: Cortes Sun [Primary Care Provider, Medical] - See instructions Guero Noel MD [Staff Physician, General Surgery] - 06/13/25 Referral Note: Please call on Wednesday, June 11, 2025 to make appointment. Ask for FARHAD [place]. Prescriptions/Medication Reconciliation: New hydrocodone-acetaminophen 5-325 mg tablet 1 tab PO Q6H PRN (Reason: post-op pain) Qty: 9 0RF amoxicillin-pot clavulanate [Augmentin] 500-125 mg tablet 1 tab PO TID Qty: 15 0RF No Action Skyrizi 150 mg/mL pen injector 180 mg SQ DIRECTED Patient Comments: [NO ORIGINAL SIG] Rx Instructions: Every 12 weeks Problem Reconciliation Problems Reviewed?: Yes Patient Discharge Instructions ACTIVITY: Ambulate as tolerated and No heavy lifting DIET: advance to your usual diet Additional Instructions: Remove dressings and shower 48 hours after surgery Leave Steri-Strips intact Patient Instructions: Appendicitis, DI for Acute Abdominal Pain, Surgical Site Infection, Catheter-Associated Urinary Tract Infection Print Language: Montene[place]in Providers Primary Care Provider: Cortes Sun Admit Provider: Guero Noel Attending Provider: Guero Noel
--- NOTE | 2025-06-11 14:46 | EXP.ANES.II ---
[facility] Anesthesia Record Part II Anesthesia Record Part II Discharge Time: 19:11 Destination: Medical Surgical Department PACU nurse assessment reviewed?: Yes Patient Condition:: Good Anesthesia Complications:: None Swallowing reflex intact?: Yes Airway Patency: Patent Cyanosis?: No Blood Pressure: 148/78 SaO2: 99 Respiratory Rate: 18 Pulse Rate: 67 Temperature: 98.6 F Mental Status: Alert & Oriented Pain level:: 0 Nausea and/or vomitting:: None Intake, IV Amount: 0 Hydration: Adequate
[2025-06-11 14:47] VITALS: BP 148/78; PULSE 67; RESP 18; TEMP 37; O2SAT 99
--- NOTE | 2025-06-12 14:11 | CARE MANAGER ---
Spoke with patient related to hospital discharge. He states he is sore but doing well. He has his medications and is aware of follow up appointments. Denies questions or concerns at this time.
== END 2025-06-07 10:27 | disposition home or self-care (01) ==
LOC: ER 14:19 → SDC 17:14 → 2ND 18:21
PROVIDERS: Nurse Practitioner; Admitting Provider Surgery; Emergency Provider Student in an Organized Health Care Education/Training Program; PCP Internal Medicine; Visit Provider Surgery
PROC: 0DTJ4ZZ Resection of Appendix, Percutaneous Endoscopic Approach (ICD-10-PCS; CPT 44970; principal; 2025-06-06 17:00)
DX: K35.30 Acute appendicitis with localized peritonitis, without perforation or gangrene (principal); F17.200 Nicotine dependence, unspecified, uncomplicated; K76.9 Liver disease, unspecified; I49.8 Other specified cardiac arrhythmias
CPT/HCPCS: 44970; 36415; 51702; 71045; 74177; 80048; 80053; 81001; 83690; 83735; 85025; 86803; 87389; 93005; 96361; 96365; 96366; 96367; 96375; 99285; G0378; J0330; J0696; J1100; J1171; J1200; J1836; J1885; J2003; J2250; J2270; J2405; J2543; J2704; J3010; J7030; Q9967